=== PATIENT | female | born 1970 | race Caucasian/White ===

== ENCOUNTER → 2020-04-15 | Outpatient (CLI) | payer MEDICARE, MEDICAID, SELFPAY | END | disposition home or self-care (01) | PROVIDERS: PCP Family Medicine; Visit Provider Family Medicine | DX: Z03.818 Encounter for observation for suspected exposure to other biological agents ruled out (principal) | CPT/HCPCS: 87635; U0003 ==

== ENCOUNTER → 2020-04-29 | Outpatient (CLI) | payer MEDICARE, MEDICAID, SELFPAY ==
[2016-12-18 11:56] VITALS: BMI 42.4
== END | disposition home or self-care (01) ==
LOC: LABSPEC 04-30 06:29
PROVIDERS: Referring Provider Family Medicine; Visit Provider Family Medicine
DX: Z03.818 Encounter for observation for suspected exposure to other biological agents ruled out (principal)
CPT/HCPCS: 87635; U0003

== ENCOUNTER → 2020-05-10 | Outpatient (CLI) | payer MEDICARE, MEDICAID, SELFPAY | END | disposition home or self-care (01) | LOC: LABSPEC 12:45 | PROVIDERS: Visit Provider Family Medicine | DX: Z03.818 Encounter for observation for suspected exposure to other biological agents ruled out (principal) | CPT/HCPCS: 87635; U0003 ==

== ENCOUNTER → 2020-05-13 | Outpatient (CLI) | payer MEDICARE, MEDICAID, SELFPAY ==
[2016-12-18 11:56] VITALS: BMI 42.4
== END | disposition home or self-care (01) ==
LOC: LABSPEC 12:15
PROVIDERS: Referring Provider Family Medicine; Visit Provider Family Medicine
DX: Z03.818 Encounter for observation for suspected exposure to other biological agents ruled out (principal)
CPT/HCPCS: 87635; U0003

== ENCOUNTER → 2020-05-27 | Outpatient (CLI) | payer MEDICARE, MEDICAID, SELFPAY ==
[2016-12-18 11:56] VITALS: BMI 42.4
== END | disposition home or self-care (01) ==
LOC: LABSPEC 10:01
PROVIDERS: Referring Provider Family Medicine; Visit Provider Family Medicine
DX: Z03.818 Encounter for observation for suspected exposure to other biological agents ruled out (principal)
CPT/HCPCS: 87635; U0003

== ENCOUNTER → 2020-06-10 | Outpatient (CLI) | payer MEDICARE, MEDICAID, SELFPAY | END | disposition home or self-care (01) | LOC: LABSPEC 11:56 | PROVIDERS: Referring Provider Family Medicine; Visit Provider Family Medicine | DX: Z03.818 Encounter for observation for suspected exposure to other biological agents ruled out (principal) | CPT/HCPCS: 87635; U0003 ==

== ENCOUNTER → 2020-10-20 10:59 | Outpatient (CLI) | payer MEDICARE, MEDICAID, SELFPAY ==
[2016-12-18 11:56] VITALS: BMI 42.4
--- NOTE | 2020-10-20 11:05 | RAD_ITS ---
STUDY: X-RAY - LEFT KNEE REASON FOR EXAM: Continued left knee pain after a fall 1 year ago. TECHNIQUE: 4 view(s) of the knee. COMPARISON: None. FINDINGS: Normal visualized distal femur. Normal visualized proximal tibia and fibula. Normal proximal tibiofibular articulation. Normal medial femorotibial compartment. Normal lateral femorotibial compartment. Normal patellofemoral articulation. The soft tissue structures are unremarkable. RAD/Knee 4 or More Views IMPRESSION: Normal x-ray examination of the left knee. Electronically Signed: Kenroy Blanco MD at 11:28 EDT Tel , Service support ,
== END ==
PROVIDERS: PCP Family Medicine; Referring Provider Family Medicine; Visit Provider Family Medicine
DX: M25.562 Pain in left knee (principal)
CPT/HCPCS: 73564

== ENCOUNTER → 2020-11-04 15:33 | Outpatient (CLI) | payer MEDICARE, MEDICAID, SELFPAY ==
--- NOTE | 2020-11-04 15:36 | MRI_ITS ---
STUDY: MRI LEFT KNEE REASON FOR EXAM: Left knee pain, no specific injury. TECHNIQUE: Standardized fat and water weighted pulse sequences were obtained in all 3 orthogonal planes. COMPARISON: Radiographs 10/20/2020. FINDINGS: There is a small radial tear of the posterior horn of the medial meniscus (T2 coronal image 12; proton-density sagittal image 13. Normal hyaline cartilage of the medial femorotibial compartment. There is a small focus of subchondral bone edema of the medial tibial plateau (T2 coronal image 15), a stress phenomenon. Normal medial collateral ligamentous complex (MCL). Normal distal semimembranosus, gracilis and semitendinosus tendons. Normal lateral meniscus. Normal hyaline cartilage of the lateral femorotibial compartment. Normal lateral femoral condyle and tibial plateau. Normal proximal tibiofibular articulation. Normal lateral collateral (fibular) ligament. Normal popliteus tendon. Normal biceps femoris tendon. Normal anterior cruciate ligament (ACL). Normal posterior cruciate ligament (PCL). Normal congruent patellofemoral articulation. There is arthrosis of the patellofemoral compartment with partial-thickness chondral loss (T2 sagittal images 12, 13) with mild subchondral cystic change. Normal medial and lateral patellar retinaculum. Normal visualized quadriceps tendon. Normal patellar tendon. Normal Hoffa''s fat pad. There is a very small joint effusion. There is a small ganglion cyst of the distal popliteus tendon sheath (T2 sagittal images 15-17) measuring approximately 1 cm in length. There is mild edema in the anterior subcutis adipose space. The otherwise visualized osseous structures are unremarkable. MRI/Lower Ext Joint Only (Routine) IMPRESSION: Small radial tear of the medial meniscus. Small focus of subchondral bone edema of the medial tibial plateau, a stress phenomenon. Patellofemoral arthrosis. Very small joint effusion. Small ganglion cyst of the distal popliteus tendon sheath. Electronically Signed: Kenroy Blanco MD at 7:25 EDT Tel , Service support ,
== END ==
PROVIDERS: PCP Family Medicine; Referring Provider Family Medicine; Visit Provider Family Medicine
DX: M25.562 Pain in left knee (principal)
CPT/HCPCS: 73721

== ENCOUNTER 2020-12-28 11:00 | Outpatient (RCR) | payer MEDICARE, MEDICAID, SELFPAY ==
--- NOTE | 2020-12-06 13:59 | HP.PTEVAL ---
Patient's Visit Information VASIEL CUNNINGHAM is a 50 year old F referred to Physical Therapy by Dr. Ysabel Colin MD with a diagnosis of vestibular and gait training. Date of Evaluation: 12/06/20 Physical Therapist: BRUCE Oneill - Visit Plan Frequency: 2x /Week Duration: 4 Weeks Plan: 2X/ week for 4 weeks for standing heel and toe raises, static and dynamic balance, vestibular inputs with HEP and some LE strength( watch L knee where she has torn meniscus) with HEP - Subjective Pt reports that she trips and falls a lot. It does not happen constant. It is not weekly. She reports that she has fallen once in 6 months which was on December 02 when she fell backwards on a driveway and got a concussion. She reports that she gets dizzy, nausea and BAILEY for 3 weeks (concussion) ( starting on december 02 with hitting her head with the fall) and then it went away. She was on a med for dizziness and nausea. When she fell she also had whiplash and had something for muscles in her neck. Her other falls happened over the last year (5 times). She fell twice last year at work (had a broken nose and teeth pushed in and hurt her wrist). She reports that she misjudges her steps.. no dizziness. She had a brain scan with her concussion which showed no fracture or bleeding. Pt has Bipolor manic depressive and on psyicatric meds, thyroid, GERD. She reports that she is walking and has to look down to know where to place her feet or she misjudges. She has a torn menisus on the L knee with increase fluid on the knee and got a steroid shot. Steps: pt reports that she has misjudged steps at time as well. Pt has B foot defect where the third and fourth toes did not grow and are shorter which has caused her balance issues but has orthotics in her shoes to help offset that deformity. - Pain L knee Pain Intensity (Out of 10): 8 - Objective Gait: walks with normal gait pattern with decreased DF with gait and possible shorter stride length. Some gastroc tightness present.... FGA: (struggled with walk backwards with shorter stride, unsure of self and slow pace. CATSIB: 110/120. LE MMT: B hip flex 3+/4, R knee flex 4+/5 and L 4-/5, R knee ext 4+/5 and L 4-/5, B hip abd 4/5, able to do 1/2 normal ROM bridge. Able to walk on heels and toes: but pt struggles with LOB when she raises her toes. Patelar DTR: R 0/3 and L 1+/3. Sit to stand: pt is able to get up out of a chair without the use of her arms. - Balance Scores Functional Gait Assessment Score: 21 % Disability: 30.0000 CATSIB Score (Max score 120 seconds): 110 - Goals Goal 1:: I HEP Goal Time Frame: 4-6 Weeks Goal 2:: Increase FGA score by 5 points to decrease fall risk (score was 21) Goal Time Frame: 4-6 Weeks Goal 3:: Increase CATSIB score by 5 points to decrease fall risk (score was 110) Goal Time Frame: 4-6 Weeks Goal 4:: Be able to heel and toe raises without UE support 3 X 10 without LOB Goal Time Frame: 4-6 Weeks - Anticipated Interventions Thank you for the opportunity to evaluate your patient. For Medicare and Medicare HMO plans, please review the plan of care and approve it. It will need to be FAXED BACK to us at [phone] for Medicare purposes. For Medicare only, by signing this I certify the plan of care. Please let me know if there are questions or concerns regarding this plan of care. Physician Signature: Date:
[2020-12-23 15:48] VITALS: BMI 38.9
--- NOTE | 2021-06-29 12:26 | HP.PTDCSUM ---
It has been my pleasure to treat VASILE CUNNINGHAM referred by Dr. Ysabel Colin MD, with the diagnosis of vestibular and gait training for a total of 6 visit(s). Discharge Date: 12/28/20 Please see the following information for a summary of their discharge status. Subjective: Pt went to the Dr last (Hitesh at [facility]) and they said she has a meniscal tear and a fracture and she needs to be NWB. They gave her a pair of crutches and she can not walk without Putting her L foot down onto the ground. She is also having trouble using the stairs. He is with her to learn how to help her. L knee Pain Intensity (Out of 10): 6 % Improvement: 40 Objective/Function: Walking with a walker was much easier for the pt and she was able to walk without putting weight through her L LE. Attempted to go up the stairs with crutches and no rail and she could not even attempt it as she feels she would fall BW. said he would build a ramp for her to get in and out of the garage. Goal 1:: I HEP Goal 2:: Increase FGA score by 5 points to decrease fall risk (score was 21) Goal 3:: Increase CATSIB score by 5 points to decrease fall risk (score was 110) Goal 4:: Be able to heel and toe raises without UE support 3 X 10 without LOB Plan: DC PT at this time as pt is NWB Discharge Comments: DC PT at this time due to being NWB If there are questions or concerns regarding this patient's physical therapy, please feel free to call me at [phone]. Thank you for the referral of this patient. Sincerely, Mari Vang, MPT Balance/Gait/Functional tests - Balance/Special Test Scores Functional Gait Assessment Score: 21 % Disability: 30.0000 CATSIB Score (Max score 120 seconds): 110 Dizziness Score: 24
== END 2020-12-28 19:00 | disposition home or self-care (01) ==
LOC: PT 11:00
PROVIDERS: PCP Family Medicine; Referring Provider Family Medicine; Visit Provider Family Medicine
DX: F07.81 Postconcussional syndrome (principal)
CPT/HCPCS: 97110; 97161; 97530

== ENCOUNTER 2021-01-21 10:01 | Day surgery (SDC) | payer MEDICARE, MEDICAID, SELFPAY ==
[2020-12-23 15:48] VITALS: BMI 38.9
[2021-01-21] VITALS (9 sets, daily range): BP systolic 126–148; BP diastolic 54–97; PULSE 65–85; RESP 16–18; TEMP 36.3–36.6; O2SAT 84–97; BMI 39.6
[2021-01-21 10:20] LABS: Internal QC Validated? YES +Cl - CLEAR BKGD
[2021-01-21 10:24] LABS: Pregnancy, Urine Negative Negative
--- NOTE | 2021-01-21 10:28 | HP.PCM_ITS ---
History and Physical Date of Admission: 01/21/21 Date of Service: 01/14/21 MR#:[id number]: VASILE CUNNINGHAM [facility] #:[id number]:[id number] Provider:Dr. Venkata Fuller, DOAge/Sex: 50/F [facility] [place] Intake Intake Visit Reasons: LEFT KNEE Allergies lamotrigine [From Lamictal] Allergy (Verified 12/23/20 14:26) Rash codeine Adverse Reaction (Verified 12/23/20 14:26) Abd cramps/diarrhea Medications levothyroxine 75 mcg PO DAILY 12/18/16 [History Confirmed 01/14/21] olanzapine [Zyprexa] 0 mg PO DAILY 12/18/16 [History Confirmed 01/14/21] atorvastatin 20 mg tablet tablet PO 12/23/20 [History Confirmed 01/14/21] cholecalciferol (vitamin D3) 50 mcg (2,000 unit) capsule 2,000 unit PO DAILY cap 12/23/20 [History Confirmed 01/14/21] diclofenac sodium 1 % topical gel gm TOPICAL 12/23/20 [History Confirmed 01/14/21] divalproex 250 mg tablet,extended release 24 hr tablet PO 12/23/20 [History Confirmed 01/14/21] ferrous sulfate 325 mg (65 mg iron) tablet tablet PO 12/23/20 [History Confirmed 01/14/21] fluoxetine 20 mg capsule capsule PO 12/23/20 [History Confirmed 01/14/21] loperamide 2 mg capsule capsule PO 12/23/20 [History Confirmed 01/14/21] metformin 500 mg tablet See Rx Instructions PO .COMPLEX 12/23/20 [History Confirmed 01/14/21] naproxen 500 mg tablet 500 mg PO DIRECTED tab 12/23/20 [History Confirmed 01/14/21] pantoprazole 40 mg tablet,delayed release tablet PO 12/23/20 [History Confirmed 01/14/21] sitagliptin 100 mg tablet tablet PO 12/23/20 [History Confirmed 01/14/21] venlafaxine 37.5 mg tablet 37.5 mg PO DAILY tab 12/23/20 [History Confirmed 01/14/21] [facility] Medical History (Updated 01/14/21 @ 12:[address] Venkata Fuller, ) DM type 2 (diabetes mellitus, type 2) GERD (gastroesophageal reflux disease) Hypercholesteremia Hypothyroidism Manic depression Surgical History (Updated 12/23/20 @ 14:38 by Alicia Velez) H/O tooth extraction History of delivery Family History (Updated 12/23/20 @ 14:40 by Alicia Velez) Grandmother Diabetes Aunt Diabetes Mother Diabetes Aunt Diabetes Father CVA (cerebral vascular accident) Social History (Updated 12/23/20 @ 14:39 by Alicia Velez) household members: spouse and children housing: house number of children: 2 current occupational status: employed pets and animals: Yes pets and animals: cat(s), dog(s), fish and other Smoking Status: Never smoker alcohol intake: never substance use type: does not use what type of physical activity do you participate in: walking seatbelt use: always do you feel safe at home: Yes HPI LEFT KNEE Details: Parts of this documentation were recorded by a scribe, this documentation accurately reflects the service provided and the decisions made by me, Dr. Venkata Fuller DO 01/14/21 0900. VASILE CUNNINGHAM is a 50 year old F here today for left knee pain. To recall from record review patient has had an intra-articular injection by another provider around 11/18/2020. Patient previously seen our physician educational program assistant 12/23/2020 and was placed in a medial cylinder block hole reliner brace but has not received the knee brace at this time d/t insurance. She has been limited weight bearing. She states that when she is out of the house she uses a WC at home. She denies any prior issues with the knee prior to 2-3 months ago. SHe did have a fall last november and had some increased knee pain after that but the pain subsided. She does have painful popping and clicking of the medial knee. Contineus to have all anterior medial knee pain. Denies any hx of Fibromyalgia or any inflammatory conditions. SHe is a diabetic. Ortho Exam General General: Yes no acute distress Neurologic: Yes alert and Yes oriented x3 Psychologic: Yes reasonable and appropriate Left Knee Homans Sign: No Knee ROM: Yes ROM-Extension -20 to 0 and No ROM-Flexion 0-140 (115) Examination: Yes med jt line tenderness, No Lat jt line tenderness and Yes Mary Lou's Test KNEE: pitting edema to BL lower extrem to tibial tuberical diabetic neuropathy to foot pain without click with medial mary lou prominent varicose veins Supplemental Info 11/04/2020 MRI left knee: radial tear posterior horn medial meniscus subchondral bone edema medial tibial plateau small joint effusion 10/20/2020 x-ray left knee: Normal Patient educated that she does have a medial meniscus tear and this is the cause of most of her knee pain. Recommended a left knee arthroscopy for medial meniscus repair vs meniscectomy. Reviewed the pre-operative plans with the patient. Risks and benefits of the procedure were fully explained, including but not limited to infection, neurovascular injury, continued pain, arthritis, stiffness, need for further surgery, re-injury, DVT, PE, general risks of anesthesia, and loss of limb or life. The patient understands all the risks and does wish to proceed with written consent for left knee medial meniscus repair vs meniscectomy. She can continue to be WBAT. She may need PT after surgery but it is not likely. She will be off work for about 4-6 weeks post op. Follow up 2 weeks post op or sooner if pain, swelling, numbness or associated symptoms, or concerns develop. All questions answered. Patient in agreement of plan. Coding Level of Care Code Off vis,est,level 3 Diagnoses Tear of meniscus of left knee S83.222D Tear current or old: current Encounter type: subsequent encounter Meniscus of knee: medial Meniscus tear of knee type: peripheral Assessment and Plan Assessment and Plan (1) Tear of meniscus of left knee: Status: Acute Qualifiers: Tear current or old: current Encounter type: subsequent encounter Meniscus of knee: medial Meniscus tear of knee type: peripheral Qualified Code(s): S83.222D - Peripheral tear of medial meniscus, current injury, left knee, subsequent encounter Plan - Dr. Venkata Fuller, DO: Patient educated that she does have a medial meniscus tear and this is the cause of most of her knee pain. Recommended a left knee arthroscopy for medial meniscus repair vs meniscectomy. Reviewed the pre-operative plans with the patient. Risks and benefits of the procedure were fully explained, including but not limited to infection, neurovascular injury, continued pain, arthritis, stiffness, need for further surgery, re-injury, DVT, PE, general risks of anesthesia, and loss of limb or life. The patient understands all the risks and does wish to proceed with written consent for left knee medial meniscus repair vs meniscectomy. She can continue to be WBAT. She may need PT after surgery but it is not likely. She will be off work for about 4-6 weeks post op. Follow up 2 weeks post op or sooner if pain, swelling, numbness or associated symptoms, or concerns develop. All questions answered. Patient in agreement of plan. 01/14/21 1239<Electronically signed by Venkata Fuller DO>Date Venkata Fuller DO Cosigner Signature:Date I have re- examined the patient. There are no clinical changes since date of exam
[2021-01-21] MEDS: Lactated Ringers 1,000 ML 100 ML IV ×2 (10:43→13:00)
[2021-01-21 11:11] LABS: Bedside Glucose 202 mg/dL (70-110)
[2021-01-21] MEDS: Cefazolin 2 GM in 0.9% Normal Saline 100 ML IV (12:20)
[2021-01-21] MEDS: Bupivacaine 0.25%-Epi/Pf 1:200,000 10 ML (12:43)
[2021-01-21] MEDS: Epinephrine (1 mg/ml) 1 MG/ML VIAL (12:43)
[2021-01-21] MEDS: Bupivacaine 0.5% PF 10 ML VIAL (13:01)
[2021-01-21] MEDS: MethylPREDNISolone Acetate 40 MG/ML Vial IM (13:02)
--- NOTE | 2021-01-21 13:25 | OP.PCM_ITS ---
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 Risk benefits and alternatives of the procedure were reviewed including risk of bleeding infection nerve artery tissue damage need for further surgery continued pain and expected postoperative course. Procedure: The patient was met in the preoperative holding area. The operative extremity was identified by both patient and physician and family and marked. Patient was brought back to the operating room on a wheeled cart and transferred to the operating table in the supine position. Anesthesia was started. A well- padded tourniquet was placed on the operative extremity. A lower extremity leg mcneill was secured to the operative extremity. The contralateral extremity was well-padded and the end of the bed was flexed to 90 degrees. The patient was prepped and draped in the usual sterile fashion. A timeout was called to ensure the proper patient, procedure, and extremity were being contemplated. 0.5% Marcaine with epinephrine was injected into the planned incisional areas under the skin only. An Esmarch was used to exsanguinate the extremity and the tourniquet was inflated. An 11 blade scalpel was used to make a stab incision in the anterior lateral portal. The arthroscope was inserted into the intercondylar notch and inflow and outflow tubes were attached. Arthroscopic visualization began. The medial compartment was entered. An 18-gauge spinal needle was used to establish the placement for anterior medial portal. An 11 blade scalpel was used to make a stab incision. Blunt probe was inserted followed by a meniscal probe. The medial compartment demonstrated high-grade cartilage wear particularly of the medial femoral condyle with an area of grade 4 on a weightbearing surface chondroplasty was performed of the loose cartilage flaps there was significant grade 3 surrounding this area, there was a large radial tear in the posterior horn medial meniscus with the use of shaver and arthroscopic biting instruments partial medial vasectomy was performed to a stable rim of cartilage meniscal tissue was left the ACL was found to be intact. There was significant synovial hypertrophy and synovitis throughout the knee which required synovectomy for visualization the lateral compartment was entered no meniscal pathology however there was grade 2 cartilage wear of the lateral femoral condyle The arthroscope was switched to the medial portal to complete the procedure. The medial and lateral gutters were inspected and were free of loose bodies. The patellofemoral joint was inspected grade 4 cartilage wear of the trochlea was noted. There was good patellar tracking. The knee was thoroughly irrigated and drained. An intra-articular injection with 5 cc 0.5% Marcaine plain and 40 mg of Depo-Medrol was injected intra-articularly. The arthroscope was removed the portals were closed with 3-0 nylon arthroscopic stitches. Followed by Xeroform 4 x 4's ABDs web roll and an Leopoldo wrap. Patient had a varicose vein that was draining heavily upon the completion of the procedure a Bovie was required to cauterize .the tourniquet was let down and the drapes were removed. All counts were correct. The patient was brought back to the PACU in stable condition.
--- NOTE | 2021-01-21 13:30 | PCM.DC ---
Discharge Instructions Diet Discharge Diet: No restrictions Activity Weight Bearing Status: Weight bearing as tolerated Keep extremity elevated above heart level: Operative Extremity Dressing / Incision Call your doctor if you observe: Shortness of breath and Chest pain Change Dressing in: 2 days Additional Dressing/Incision Instructions:: Ice and elevate next 72 hours .keep dressing on clean and dry for 48 hours then may remove begin showering daily but do not submerge in tub or pool. After shower may apply Band-Aids . Encourage knee range of motion weightbearing as tolerated, use crutches until confident in knee then may discontinue. No strenuous activity. When not ambulating keep iced and elevated next 72 hours. Do not mix pain medication with recreational drugs or alcohol only take as prescribed can be addictive and abusive, call with any questions or concerns. Follow Up Care Please Follow Up With: Venkata Fuller DO When: 2 weeks Test Results: Test results from this visit will be discussed in further detail at your follow-up appointment, if applicable. Discharge Plan Admission Attending Provider: Venkata Fuller Primary Care Provider: Ysabel Colin Discharge Orders/Prescriptions Prescriptions: New oxycodone 5 mg tablet 5 mg PO Q4H PRN (Reason: pain) 7 Days Qty: 30 RF: 0 No Action atorvastatin [Lipitor] 20 mg tablet 20 mg PO DAILY RF: 0 cholecalciferol (vitamin D3) 50 mcg (2,000 unit) capsule 2,000 unit PO DAILY RF: 0 divalproex [Depakote ER] 250 mg tablet extended release 24 hr 250 tablet PO QHS RF: 0 loperamide 2 mg capsule 1 capsule PO DAILY RF: 0 ferrous sulfate 325 mg (65 mg iron) tablet 1 tablet PO DAILY RF: 0 pantoprazole 40 mg tablet,delayed release (DR/EC) 1 tablet PO DAILY RF: 0 Januvia 100 mg tablet 100 tablet PO DAILY RF: 0 fluoxetine 20 mg capsule 1 capsule PO DAILY RF: 0 venlafaxine 37.5 mg tablet 37.5 mg PO DAILY RF: 0 diclofenac sodium 1 % gel 1 gm topical PRN PRN (Reason: Pain) RF: 0 naproxen 500 mg tablet 500 mg PO DIRECTED RF: 0 olanzapine [Zyprexa] 2.5 MG tablet 2.5 mg PO DAILY RF: 0 levothyroxine 75 MCG tablet 75 mcg PO DAILY RF: 0 metformin 500 mg tablet See Rx Instructions PO .COMPLEX RF: 0 trazodone 50 mg tablet 50 mg PO DAILY RF: 0 glipizide 10 mg tablet 10 mg PO DAILY RF: 0 Referrals / Follow Up: Ysabel Colin MD [Primary Care Provider] - Disposition Disposition (needs filled in before D/C Order can be placed): Home, Self Care
[2021-01-21 13:55] LABS: Bedside Glucose 177 mg/dL (70-110)
[2021-01-21] MEDS: oxyCODONE 5 MG Tablet PO (15:24)
== END 2021-01-21 16:26 | disposition home or self-care (01) ==
LOC: SDC 10:03 → AC 10:04
PROVIDERS: Anesthesiology; PCP Family Medicine; Referring Provider Orthopaedic Surgery; Visit Provider Orthopaedic Surgery
PROC: (CPT 29870; principal; 2021-01-21 11:55)
DX: S83.242A Other tear of medial meniscus, current injury, left knee, initial encounter (principal); M94.262 Chondromalacia, left knee; M65.88 Other synovitis and tenosynovitis, other site; E11.9 Type 2 diabetes mellitus without complications; K21.9 Gastro-esophageal reflux disease without esophagitis; E78.00 Pure hypercholesterolemia, unspecified; E03.9 Hypothyroidism, unspecified; F31.9 Bipolar disorder, unspecified; G47.30 Sleep apnea, unspecified; Z91.19 Patient's noncompliance with other medical treatment and regimen; Z79.84 Long term (current) use of oral hypoglycemic drugs; Z79.899 Other long term (current) drug therapy; X58.XXXA Exposure to other specified factors, initial encounter; Y93.89 Activity, other specified; Y92.89 Other specified places as the place of occurrence of the external cause; Y99.8 Other external cause status
CPT/HCPCS: 01400; 29876; 29881; 81025; 82962; J7120; J2405

== ENCOUNTER → 2021-03-02 10:16 | Outpatient (CLI) | payer MEDICARE, MEDICAID, SELFPAY ==
[2021-02-04 09:33] VITALS: BMI 39.6
[2021-03-02 12:22] LABS: Creatinine, Serum 0.77 mg/dL (0.55-1.02); EST Glomerular Filtration Rate 84 mL/min (>60); Est Glom Filt Rate - Afr Amer 101 mL/min (>60)
== END ==
PROVIDERS: PCP Family Medicine; Referring Provider Orthopaedic Surgery; Visit Provider Orthopaedic Surgery
DX: M17.12 Unilateral primary osteoarthritis, left knee (principal)
CPT/HCPCS: 36415; 82565

== ENCOUNTER → 2021-03-30 11:02 | Outpatient (CLI) | payer MEDICARE, MEDICAID, SELFPAY ==
--- NOTE | 2021-03-30 11:04 | VDLE_ITS ---
Reason For Study: Swelling RIGHT LEFT CFV is compressible, spontaneous, phasic, GSV is normal. competent and demonstrates normal CFV is compressible, spontaneous, phasic, augmentation. competent, and demonstrates normal Procedure augmentation. This is a venous duplex using B-mode, color FV is compressible, spontaneous, phasic, flow and spectral Doppler. competent and demonstrates normal Exam performed in department. augmentation. A preliminary report was called and/or faxed POP V is compressible, spontaneous, phasic, to Wayt. competent and demonstrates normal augmentation. T/P Trunk is compressible. PTV is compressible. LT PerV is compressible. VL/Venous Duplex US, Unilateral Interpretation Summary There is no evidence of left lower extremity deep vein thrombosis. Left great s aphenous vein appears patent and compressible segmentally. Normal flow patterns right common femoral vein Ordering Physician: Cruz Robbins Referring Physician: Ysabel Colin Performed By: Beverley Holt RVT
== END ==
PROVIDERS: PCP Family Medicine; Referring Provider Physician Assistant; Visit Provider Physician Assistant
DX: M79.89 Other specified soft tissue disorders (principal)
CPT/HCPCS: 93971

== ENCOUNTER → 2021-06-21 | Outpatient (CLI) | payer MEDICARE, MEDICAID, SELFPAY ==
--- NOTE | 2021-06-21 12:00 | LES_PTH ---
PATIENT: VASILE CUNNINGHAM LOC: [facility] #:[id number] AGE/SX: 51/F ROOM: RE06/21/[address]: Dr. Ysabel Colin MD : 1970 BED: DIS: 06/21/2021 SPEC #: [id number] RECD: 06/21/21 14:45 STATUS: MONICA JEAN-BAPTISTE #: [id number] NEVIN: 06/21/21 12:[address]: Ysabel Colin DEPT: SURGICAL PATHOLOGY RECD BY: Xuan Ambrosio Tissues: Skin of head, NOS Procedures: Surgery Specimen Level IV HEADER OPERATION: Punch biopsy, 3mm PRE-OP DIAGNOSIS: Lesion 5mm, unresponsive to steroids TISSUE SUBMITTED: Punch biopsy right cheondoism, 3mm MICROSCOPIC DIAGNOSIS Right cheondoism skin lesion, punch biopsy: Basal cell carcinoma. SJ 06/24/21 MICROSCOPIC DESCRIPTION Slides are reviewed. GROSS DESCRIPTION Received is one container labeled with the patient name and designated right cheondoism. The specimen consists of one punch biopsy of garcia white skin that measures 0.2 cm in diameter and 0.1 cm in legth. The specimen is totally submitted in one cassette. FABIOLA:devonte 06/22/21 TC:0 CPT:91210
== END | disposition home or self-care (01) ==
LOC: LABSPEC 15:58
PROVIDERS: PCP Family Medicine; Visit Provider Family Medicine
DX: L98.9 Disorder of the skin and subcutaneous tissue, unspecified (principal)
CPT/HCPCS: 88305

== ENCOUNTER 2021-07-20 10:30 | Outpatient (RCR) | payer MEDICARE, MEDICAID, SELFPAY ==
--- NOTE | 2021-04-20 13:18 | HP.PTEVAL ---
Patient's Visit Information VASILE CUNNINGHAM is a 51 year old F referred to Physical Therapy by JEANINE Gibson with a diagnosis of L KNEE OA, S/P L KNEE MENISECTOMY, L ITB SYNDROME. Date of Evaluation: 04/20/21 Physical Therapist: Evonne Pearl, PT, Cert MDT - Visit Plan Frequency: 2-3x /Week Duration: 4-6 Weeks Plan: L LE ROM, STRETCHING AND STRENGTHENING TO HELP MEET SET GOALS. US, MH OR CP NEEDED. BALANCE AND PROPRIOCEPTIVE TRAINING. LAND AND AQUATIC THERAPY. 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 STANDING AND WALKING. WORK DOES NOT INVOLVE ANY HEAVY LIFTING, PUSHING OR PULLING. DOES LAUNDRY, GETS RESIDENTS ICE WATER AND SPRAYS DOWN EQUIPMENT. DOES SOME SWEEPING AND MOPPING. ESCORTS PATIENTS BACK AND FORTH TO DINING ROOM. PUSHES WHEEL CHAIRS. HANDS OUT SNACKS AND GETS NEW MASKS READY DAILY FOR PATIENTS. Disability: SSI DISABILITY FOR BIPOLAR, MANIC DEPRESSIVE DISORDER. Present symptoms: LEFT KNEE PAIN. Present since: SEPTEMBER 2020. Pain Scale: WORST 6/10, LEAST 2/10. Currently: 2/10. Commenced as a result of: NO APPARENT REASON. MAYBE AN OLD INJURY PER PATIENT REPORT. LAST YEAR TRIPPED AND FELL ON A RUBBER MAT AT WORK. ALSO FELL ON KNEES A COUPLE MONTHS BEFORE THAT WHILE STEPPING OVER A BABY GATE. Symptoms at onset: L KNEE PAIN. Worse: WALKING AT WORK, DOING STAIRS, SOMETIMES GETTING IN AND OUT OF CAR. SOMETIMES GETS SHOOTING PAINS WALKING. SOMETIMES STILL GETS PAIN LIKE BEFORE SURGERY IF SHE MOVES WRONG. INITIATING GAIT AFTER SITTING BECAUSE IT GETS STIFF AND HAS TO LIMP A BIT UNTIL SHE GETS GOING. Better: ICE, CELEBREX, UNLOADING. Disturbed sleep: L KNEE THOBS WHEN TRYING TO GO TO SLEEP AT NIGHT. Previous history/Previous treatment: JANUARY 20 2021 MENISCUS SURGERY (BY DR. BASURTO - Report of Operation. Date of Procedure: 01/21/21. Description of Surgical Findings:: Preop diagnosis: Left knee medial meniscus tear. Postoperative diagnosis: Grade IV chondromalacia medial femoral condyle grade IV chondromalacia trochlea radial tear posterior horn medial meniscus synovitis. Procedure: Left knee arthroscopic partial medial meniscectomy chondroplasty medial femoral condyle tricompartmental synovectomy). TRIED STEROID INJECTION BEFORE THE SURGERY. STATES SHE TRIED BALANCE THERAPY FOR HERE AFTER HER KNEE STARTED HURTING AND BEFORE SURGERY. STATES SHE WAS SENT TO PT BECAUSE OF THE FALLING BUT HER KNEE WAS HURTING AND HURT MORE WITH PT. TRIED A BRACE TO RELIEVE PRESSURE OFF THE TORN MENISCUS. STATES SHE QUIT WEARING THE BRACE BECAUSE OF KNEE PAIN AND CALF TIGHTNESS. Gait: GETTING PRETTY GOOD. BUT INTERMITTENT SHOOTING PAINS. STATES SHE DOESN'T FEEL LIKE SHE LIMPS ANYMORE EXCEPT AFTER SITTING. Imaging: IMAGING BEFORE KNEE SURGERY SHOWING TORN MENISCUS PER PATIENT REPORT. PMH/Recent major surgery: SEE DISABILITY ABOVE. NIDDM. APARNA FOOT DEFORMITY AND WEARS ORTHOTICS. BALANCE PROBLEMS. STATES SHE MISJUDGES STEPPING OFF CURBS AND SOMETIMES FALLS. FATTY LIVER DZ. HIGH CHOLESTROL. - Objective THIS PATIENT AMBULATES INDEP'LY INTO PT TODAY WITH A MILD LIMP ON THE LEFT LE AND NO ASSITIVE DEVICES OR LOB. INDEP TRANSFER SIT TO STAND WITHOUT UE ASSIST. APARNA KNEE GENU VALGUS. Motor deficit: RIGHT LE 5/5 EXCEPT HIP 4/5. LEFT LE: HIP 4-/5, KNEE EXT 3-/5, KNEE FLEX 3-/5, ANKLE 5/5. Sensory deficit: APARNA LE LIGHT TOUCH SENSATION INTACT AND SYMMETRICAL. ROM deficit: -15 DEG EXT TO 90 DEG FLEX IN SUPINE WITH A HEEL SLIDE AND ERP BOTH DIRECTIONS. Lumbar mvmt loss: flex - NIL. ext - MOD. R SG - MOD. L SG - MOD. Core strength: POOR. Palpation: MILD LEFT KNEE EDEMA COMPARED TO RIGHT AND MILD TENDERNESS WITH PALPATION AROUND THE PATELLA. OTHER: PATIENT REPORTS SHE ADJUSTMENTS TO HER ORTHOTICS TODAY DUE TO KNEE PAIN. - Balance/Special Test Scores Lower Extremity Functional Score: 45 - Goals Goal 1:: INDEP AND SAFE GAIT ON LEVEL SURFACES AND UP AND DOWN STEPS WITHOUT DEVIATION. Goal Time Frame: 4-6 Weeks Goal 2:: INCREASE FUNCTIONAL ROM OF RIGHT KNEE BY AT LEAST 20 DEGREES Goal Time Frame: 4-6 Weeks Goal 3:: INCREASE FUNCTION STRENGTH OF RIGHT LE TO 5/5 Goal Time Frame: 4-6 Weeks Goal 4:: PATIENT WILL BE INDEP WITH A HEP FOR CONTINUED IMPROVEMENT ONCE FORMAL PHYSICAL THERAPY CONCLUDES. Goal Time Frame: 4-6 Weeks - Anticipated Interventions Patient/Client Instruction: Educate patient on: Condition, Plan of Care, Risk Factors For the Purpose of:: To improve self management Therapeutic Exercise to Include: Strength training, Flexibilty training, Gait and locomotor training, Neuromotor development, In an aquatic setting, Dynamic Lumbar Stabilization For the Purpose of:: To decrease pain, To increase ROM, To improve muscle performance and motor function, To increase tolerance to activity/condition/position, To improve ability of physical actions for home/community/work/leisure, To improve gait and locomotor functions Cryotherapy (ice pack, ice massage): Yes Thermo therapy (hot pack): Yes Ultrasound (thermal/non thermal): Yes For the Purpose of:: To decrease pain, To decrease swelling/inflammation, To improve nutrient delivery to tissue Thank you for the opportunity to evaluate your patient. For Medicare and Medicare HMO plans, please review the plan of care and approve it. It will need to be FAXED BACK to us at [phone] for Medicare purposes. For Medicare only, by signing this I certify the plan of care. Please let me know if there are questions or concerns regarding this plan of care. Physician Signature: Date:
--- NOTE | 2021-06-02 14:05 | HP.PTREVAL ---
JEANINE Gibson, It has been my pleasure to treat VASILE CUNNINGHAM over the last 10 visits for L KNEE OA, S/P L KNEE MENISECTOMY, L ITB SYNDROME. Please see the progress note below for an update on the physical therapy plan of care! Subjective: PT ORDERED REC'D TO CONTINUE 05/26/21. PATIENT REPORTS SHE DOESN'T GET MUCH SHOOTING PAIN NOW SHE DID BEFORE SHE STARTED PT. SHE REPORTS IF FEELS BETTER WHEN SHE WALKS AROUND COMPARED TO WHEN SHE SITS. HARD TO GET TO SLEEP AT NIGHT BECAUSE OF THE PAIN. PATIENT REPORTS IT ALWAYS FEELS BETTER AFTER SHE DOES PT BOTH ON LAND AND IN THE WATER AND SHE WANTS TO CONTINUE. PATIENT REPORTS WALKING IS GETTING BETTER AND EVEN THOUGH STEPS ARE STILL DIFFICULT IT IS A LITTLE BETTER. PATIENT REPORTS SHE IS STILL GETTING UP TO 7/10 PAIN IN HER KNEE AND SHE DOES NOT HAVE FOLLOW UP SCHEDULED WITH ORTHO. Objective/Function: PATIENT WAS SEEN TODAY FOR RE-ASSESSMENT OF PROGRESS TOWARD THE SET PT GOALS AND THE NEED FOR FURTHER PHYSICAL THERAPY VS READINESS FOR DISCHARGE. SHE IS MAKING PROGRESS WITH PT IN TERMS OF LLE ROM AND STRENGTH BUT STILL REPORTING HIGH PAIN LEVELS AND SIGNIFICANT DAILY DYSFUNCTION. LEFS SCORE WAS WORSE. UPON EXAM TODAY: Motor deficit: RIGHT LE 5/5 EXCEPT HIP 4/5. LEFT LE: HIP 4/5, KNEE EXT 3-/5, KNEE FLEX 3-/5, ANKLE 5/5. Sensory deficit: APARNA LE LIGHT TOUCH SENSATION INTACT AND SYMMETRICAL. ROM deficit: -13 DEG EXT TO 119 DEG FLEX IN SUPINE WITH A HEEL SLIDE AND ERP BOTH DIRECTIONS. Lumbar mvmt loss: flex - NIL. ext - MOD. R SG - MOD. L SG - MOD. Core strength: POOR. Palpation: MILD LEFT KNEE EDEMA COMPARED TO RIGHT AND MILD TENDERNESS WITH PALPATION AROUND THE PATELLA. Plan Plan: CONT PT 2X'S A WK X 10 VISITS FOR L LE ROM, STRETCHING AND STRENGTHENING TO HELP MEET SET GOALS. US, MH OR CP NEEDED. BALANCE AND PROPRIOCEPTIVE TRAINING. LAND AND AQUATIC THERAPY. Balance/Gait/Functional tests - Balance/Special Test Scores Lower Extremity Functional Score: 34 Goals Goal 1:: INDEP AND SAFE GAIT ON LEVEL SURFACES AND UP AND DOWN STEPS WITHOUT DEVIATION. Goal Time Frame: 4-6 Weeks Goal Progress: Progressing Goal 2:: INCREASE FUNCTIONAL ROM OF RIGHT KNEE BY AT LEAST 20 DEGREES Goal Time Frame: 4-6 Weeks Goal Progress: Goal Met Goal 3:: INCREASE FUNCTION STRENGTH OF RIGHT LE TO 5/5 Goal Time Frame: 4-6 Weeks Goal Progress: Progressing Goal 4:: PATIENT WILL BE INDEP WITH A HEP FOR CONTINUED IMPROVEMENT ONCE FORMAL PHYSICAL THERAPY CONCLUDES. Goal Time Frame: 4-6 Weeks Goal Progress: Progressing Goal 5:: INCREASE FUNCTIONAL ROM OF RIGHT KNEE BY AT LEAST 10 DEGREES Goal Time Frame: 4-6 Weeks Anticipated Interventions Patient/Client Instruction: Educate patient on: Condition, Plan of Care, Risk Factors For the Purpose of:: To improve self management Therapeutic Exercise to Include: Strength training, Flexibilty training, Gait and locomotor training, Neuromotor development, In an aquatic setting, Dynamic Lumbar Stabilization For the Purpose of:: To decrease pain, To increase ROM, To improve muscle performance and motor function, To increase tolerance to activity/condition/position, To improve ability of physical actions for home/community/work/leisure, To improve gait and locomotor functions Cryotherapy (ice pack, ice massage): Yes Thermo therapy (hot pack): Yes Ultrasound (thermal/non thermal): Yes For the Purpose of:: To decrease pain, To decrease swelling/inflammation, To improve nutrient delivery to tissue Please do not hesitate to contact me at [phone] by phone or if you have questions or concerns regarding this new plan of care! Sincerely, Evonne Pearl PT, Cert MDT
--- NOTE | 2021-07-20 10:59 | HP.PTDCSUM_ITS ---
It has been my pleasure to treat VASILE CUNNINGHAM referred by JEANINE Gibson, with the diagnosis of L KNEE OA, S/P L KNEE MENISECTOMY, L ITB SYNDROME for a total of 19 visit(s). Discharge Date: 07/20/21 Please see the following information for a summary of their discharge status. Subjective: PATIENT REPORTS HER KNEE IS NOT CONTINUING TO IMPROVE AND SHE DO ESN'T THINK MORE THERAPY WILL HELP. PATIENT REPORTS ORTHO RECOMMENDS PAIN MGMT AND GEL INJECTIONS DUE TO THE AMOUNT OF ARTHRITIS SHE HAS. WENT TO A ORTHO DOCTOR IN [place] FOR A SECOND OPINION AND HE DID NOT GIVE HER AN ORDER TO CONTINUE PT. REPORTS SHE PLANS TO FOLLOW UP WITH THIS DOCTOR IN [place] BUT SHE CAN'T REMEMBER HIS NAME OR WHICH MEDICAL FACILITY HE IS WITH. LEFT KNEE Pain Intensity (Out of 10): 5 % Improvement: 50 Objective/Function: PATIENT WAS SEEN TODAY FOR RE-ASSESSMENT OF PROGRESS TOWARD THE SET PT GOALS AND THE NEED FOR FURTHER PHYSICAL THERAPY VS READINESS FOR DISCHARGE. PATIENT IS NOT CONTINUING TO IMPROVE, HAS CHANGED DOCTORS AND DOES NOT HAVE A CURRENT PT ORDER. SHE IS APPROPRIATE FOR DISCHARGE AT THIS TIME TO FOLLOW UP WITH ORTHO RECOMMENDATIONS IF WILLING. UPON EXAM TODAY: Motor deficit: RIGHT LE 5/5 EXCEPT HIP 4/5. LEFT LE: HIP 4/5, KNEE EXT 3-/5, KNEE FLEX 3-/5, ANKLE 5/5. Sensory deficit: APANRA LE LIGHT TOUCH SENSATION INTACT AND SYMMETRICAL. ROM deficit: -12 DEG EXT TO 123 DEG FLEX IN SUPINE WITH A HEEL SLIDE AND ERP BOTH DIRECTIONS. Lumbar mvmt loss: flex - NIL. ext - MOD. R SG - MOD. L SG - MOD. PATIENT DENIES LBP WITH LUMBAR ROM TESTING ALL PLANES. Core strength: POOR. Palpation: MILD LEFT KNEE EDEMA COMPARED TO RIGHT AND MILD TENDERNESS WITH PALPATION AROUND THE PATELLA. Goal 1:: INDEP AND SAFE GAIT ON LEVEL SURFACES AND UP AND DOWN STEPS WITHOUT DEVIATION. Goal Progress: Not Progressing Goal 2:: INCREASE FUNCTIONAL ROM OF RIGHT KNEE BY AT LEAST 20 DEGREES Goal Progress: Goal Met Goal 3:: INCREASE FUNCTION STRENGTH OF RIGHT LE TO 5/5 Goal Progress: Not Progressing Goal 4:: PATIENT WILL BE INDEP WITH A HEP FOR CONTINUED IMPROVEMENT ONCE FORMAL PHYSICAL THERAPY CONCLUDES. Goal Progress: Not Progressing Goal 5:: INCREASE FUNCTIONAL ROM OF RIGHT KNEE BY AT LEAST 10 DEGREES Goal Progress: Not Progressing Plan: D/C. PATIENT AGREEABLE. If there are questions or concerns regarding this patient's physical therapy, please feel free to call me at [phone]. Thank you for the referral of this patient. Sincerely, Evonne Pearl, PT, Cert MDT Balance/Gait/Functional tests - Balance/Special Test Scores Lower Extremity Functional Score: 34
== END 2021-07-20 19:00 | disposition home or self-care (01) ==
LOC: PT 10:30
PROVIDERS: PCP Family Medicine; Referring Provider Physician Assistant; Visit Provider Physician Assistant
DX: Z47.89 Encounter for other orthopedic aftercare (principal); M17.12 Unilateral primary osteoarthritis, left knee; M76.32 Iliotibial band syndrome, left leg
CPT/HCPCS: 97110; 97113; 97162; 97164; 97530

== ENCOUNTER 2021-08-11 16:59 | Outpatient (CLI) | payer MEDICARE, SELFPAY | END 2021-08-11 23:59 | disposition short-term general hospital (02) | PROVIDERS: PCP Family Medicine; Visit Provider Family Medicine | DX: Z20.828 Contact with and (suspected) exposure to other viral communicable diseases (principal) | CPT/HCPCS: 87635; U0003; U0005 ==

== ENCOUNTER 2021-08-31 06:51 | Day surgery (SDC) | payer MEDICARE, SELFPAY ==
--- NOTE | 2021-08-30 23:29 | PCM.HP.BLA ---
History and Physical Date of Admission: 08/31/21 HISTORY OF PRESENT ILLNESS 51 year old woman presents with a recent diagnosis of basal cell carcinoma after a punch biopsy done on 06/21/21 by her PCP, Dr. Colin. Pathology report showed a basal cell carcinoma. She denies any fever. She denies trauma. She presents at this time for further evaluation and treatment. PAST MEDICAL HISTORY Arthritis Basal cell carcinoma of right restorationist region Bipolar 1 disorder Diabetes DM type 2 (diabetes mellitus, type 2) Family history of skin cancer Fatty liver Gastric reflux GERD (gastroesophageal reflux disease) High cholesterol History of edema History of irregular heartbeat History of pain when walking Hypercholesteremia Hypothyroidism Injury of head and neck Manic depression Sleep apnea Thyroid disease Wears glasses Wears partial dentures PAST SURGICAL HISTORY H/O tooth extraction History of delivery History of knee surgery ALLERGIES lamotrigine [From Lamictal] codeine MEDICATIONS levothyroxine 75 mcg PO DAILY 12/18/16 [History Confirmed 07/04/21] olanzapine [Zyprexa] 2.5 mg PO DAILY 12/18/16 [History Confirmed 07/04/21] atorvastatin 20 mg tablet 20 mg PO DAILY 12/23/20 [History Confirmed 07/04/21] cholecalciferol (vitamin D3) 50 mcg (2,000 unit) capsule 2,000 unit PO DAILY cap 12/23/20 [History Confirmed 07/04/21] diclofenac sodium 1 % topical gel 1 gm TOPICAL PRN PRN 12/23/20 [History Confirmed 06/10/21] divalproex 250 mg tablet,extended release 24 hr 250 tablet PO QHS 12/23/20 [History Confirmed 07/04/21] ferrous sulfate 325 mg (65 mg iron) tablet 1 tablet PO DAILY 12/23/20 [History Confirmed 07/04/21] loperamide 2 mg capsule 1 capsule PO DAILY 12/23/20 [History Confirmed 07/04/21] metformin 500 mg tablet See Rx Instructions PO .COMPLEX 12/23/20 [History Confirmed 07/04/21] pantoprazole 40 mg tablet,delayed release 1 tablet PO DAILY 12/23/20 [History Confirmed 07/04/21] sitagliptin 100 mg tablet 100 tablet PO DAILY 12/23/20 [History Confirmed 07/04/21] venlafaxine 37.5 mg tablet 37.5 mg PO DAILY tab 12/23/20 [History Confirmed 07/04/21] glipizide 10 mg PO DAILY 01/18/21 [History Confirmed 07/04/21] fluoxetine 10 mg capsule 10 mg PO DAILY cap 06/10/21 [History Confirmed 07/04/21] FAMILY HISTORY Grandmother Diabetes Aunt Diabetes Mother Diabetes Aunt Diabetes Father CVA (cerebral vascular accident) Other Arthritis Family history of skin cancer Fatty liver High cholesterol History of psychiatric care Skin cancer Suicide attempt Thyroid disorder SOCIAL HISTORY Smoking Status: Never smoker alcohol intake: never substance use type: does not use REVIEW OF SYSTEMS General - Denies fever, fatigue, and weight loss. Eyes - Denies cataracts and glaucoma. ENT - Denies nasal congestion and sore throat. Endocrine - Has excessive thirst and urination. Has thyroid disease. Skin - Has suspicious lesion on his right restorationist by anterior temporal hairline. Has family history of skin cancer. Musculoskeletal - Has joint pain and joint stiffness. Denies weakness of muscles and joints, back pain, and arthritis. Neuro - Denies headaches. Cardiovascular - Denies chest pain, fatigue, and shortness of breath with exertion. Psych - Denies anxiety. Has depression. Respiratory - Denies chronic cough and shortness of breath. Has some sleep apnea. Gastrointestinal - Denies nausea, vomiting and constipation. Has frequent diarrhea. Hematologic - Denies abnormal bruising and bleeding. Has anemia. Genitourinary - Denies hematuria. Has urinary frequency. Has dribbling. PHYSICAL EXAMINATION General - Alert and Oriented. HEENT - PERRL. EOMI. Throat is clear. On the right restorationist by the anterior temporal hairline is a lesion that has become more raised in configuration, has developed irregular borders. Recent punch biopsy on 06/21/21 showed basal cell carcinoma. It measures 1.5 x 1.2 cm. Some overlying scab probably from the recent punch biopsy. It should resolve. Neck - Supple and nontender. No cervical adenopathy. No suspicious lesions noted. Lungs - Clear to auscultation. Heart - Regular rate and rhythm. Abdomen - Soft and nondistended. No suspicious lesions noted. Extremities - FROM. No axillary adenopathy. Radial pulses are palpable. No suspicious lesions noted. Neuro - CN II-XII grossly intact. Psych - Normal mood and affect. ASSESSMENT 1. 1.5 cm basal cell carcinoma right restorationist by anterior hairline. 2. Diabetes mellitus. 3. Family history of skin cancer. PLAN Pathology reviewed from 06/21/21. It was a punch biopsy and showed a basal cell carcinoma. Recommended to the patient to have this basal cell carcinoma excised and sent to Pathology for analysis to rule out carcinoma. Will excise with a margin of 3-5 mm. Reconstruction will be with a skin graft or a skin flap. Surgery can occur on an outpatient basis under local anesthesia and IV sedation. Patient was informed of the risks and complications of the procedure including alternatives to surgery. These were discussed with the patient personally. Patient voices understanding and wishes to proceed. Some of the risks and complications were included in a form from the [employer]. Patient has diabetes mellitus. For elective surgeries, the HgbA1c must be less than 8. We called her PCP, and her latest HgbA1c was 8.9. Excising the basal cell carcinoma would occur regardless of the HgbA1c. However, the reconstruction would not be done until it was less than 8. Patient voices understanding. We discussed the current risks associated with COVID-19. While it is understood that there is a community spread of COVID-19, the risk of jasmina COVID-19 while at [facility] ([facility]) is very low; however, the risk cannot be completely mitigated because of the community spread of the disease. We discussed in detail the risk of exposure to and/or potential harm posed by the COVID-19 virus with having a surgery/procedure at this time versus the risk of delaying the surgery/procedure. It is not possible to know either the risk of delaying the surgery or procedure or chance of getting an infection with perfect accuracy, but a joint decision was made to proceed at this time with the scheduled surgery/procedure as indicated on the consent form. Patient was notified that we will need to comply with any screening or testing [facility] wishes to perform or that surgery may be delayed for any positive results. Procedure Criteria Procedure Type: Elective COVID Risk Discussion: The surgeon/proceduralist and patient have discussed in detail the risk of exposure to and/or potential harm posed by the COVID-19 virus with having a surgery/procedure at this time versus the risk of delaying the surgery/procedure. It is not possible to know either the risk of delaying the surgery or procedure or chance of getting an infection with perfect accuracy, but a joint decision was made between the patient and the surgeon/proceduralist to proceed at this time with the scheduled surgery/procedure as indicated on the consent form.
[2021-08-31] VITALS (7 sets, daily range): BP systolic 125–135; BP diastolic 61–80; PULSE 76–87; RESP 16; TEMP 36.1–36.8; O2SAT 91–97; BMI 36.6
--- NOTE | 2021-08-31 | LES_PTH ---
PATIENT: VASILE CUNNINGHAM LOC: [facility] [place] U#:[id number] AGE/SX: 51/F ROOM: RE08/31/[address]: Dr. Kenny Gonzalez MD : 1970 BED: DIS: 08/31/2021 SPEC #: [id number] RECD: 08/31/21 12:17 STATUS: MONICA JERILYN #: [id number] NEVIN: 08/31/21 00:[address]: Kenny Gonzalez DEPT: SURGICAL PATHOLOGY RECD BY: Sander Poole ENTERED: 08/31/21 12:18 SP TYPE: Lesion OTHR DR: Dr. Ysabel Colin MD Tissues: Skin of head, NOS Procedures: Surgery Specimen Level IV HEADER OPERATION: Excision basal cell carcinoma, right synagogue by anterior hairline PRE-OP DIAGNOSIS: 5 cm basal cell carcinoma, right synagogue by anterior hairline TISSUE SUBMITTED: Basal cell carcinoma, right synagogue by anterior hairline, suture at 12 o?clock MICROSCOPIC DIAGNOSIS Skin lesion of right synagogue, excisional biopsy: Basal cell carcinoma, superficial multifocal, completely excised. Changes of previous biopsy. AM:franck 09/05/2021 COMMENT Case has been reviewed in consultation with Dr. Gregorio who concurs with the above diagnosis. IDC:SJ MICROSCOPIC DESCRIPTION Slides are reviewed. GROSS DESCRIPTION Received is one container labeled with the patient?s name and designated basal cell carcinoma right synagogue. The specimen consists of an ovoid fragment of hair-bearing excised light garcia skin measuring 4.2 x 3.3 cm and excised to a depth of 0.3 cm. The specimen has been oriented and is differentially inked as follows: 12 o?clock - block, 3 o?clock - blue, 6 o?clock - green, 9 o?clock - red and deep mid portion - yellow. The specimen is serially sectioned and totally submitted as follows: 1 & 2 - shaved margin of entire specimen, 4-6 - remainder of the lesion serially sectioned and totally submitted. /AM:devonte 09/01/21 TC:0 CPT: 33966
[2021-08-31 07:15] LABS: Bedside Glucose 200 mg/dL (70-110)
[2021-08-31 07:23] LABS: Internal QC Validated? YES +Cl - CLEAR BKGD; Pregnancy, Urine Negative Negative
[2021-08-31] MEDS: Lactated Ringers 1,000 ML 30 ML IV (07:37)
[2021-08-31] MEDS: Lidocaine 1%/Epi 1:200 (30ml) 30 ML AMPUL (09:00)
--- NOTE | 2021-08-31 09:27 | OP.PCM_ITS ---
Problems Associated Problem List Diagnoses (1) Basal cell carcinoma of right religious region: (2) DM type 2 (diabetes mellitus, type 2): (3) Family history of skin cancer: Report of Operation Date of Procedure: 08/31/21 Pre-Operative Diagnosis: 1. 2.5 cm basal cell carcinoma right religious by anterior hairline. 2. Diabetes mellitus. 3. Family history of skin cancer. Post-Operative Diagnosis: 1. 2.5 cm ulcerated basal cell carcinoma right religious by anterior hairline. 2. Diabetes mellitus. 3. Family history of skin cancer. Surgery/Procedure Performed:: Excision 2.5 cm ulcerated basal cell carcinoma right religious by anterior hairline. Description of Surgical Findings:: 51 year old woman presents with a recent diagnosis of basal cell carcinoma after a punch biopsy done on 06/21/21 by her PCP, Dr. Colin. Pathology report showed a basal cell carcinoma. She denies any fever. She denies trauma. Patient has diabetes mellitus. Her latest HgbA1c was 8.9. For elective surgeries, the HgbA1c needs to be less than 8. So will be excising the skin cancer first to establish a diagnosis. We will instruct the patient on the Silver dressing changes daily or every other day depending on the amount of drainage. Patient was informed of the risks and complications of the procedure including alternatives to surgery. These were discussed with the patient personally. Patient voices understanding and wishes to proceed. Some of the risks and complications were included in a form from the [employer]. Size of basal cell carcinoma wound right religious by anterior hairline - 4.5 x 4 cm. Surgeon: Kenny Gonzalez automatic glove turner and former: None Type of Anesthesia: Local MAC (xylocaine with epinephrine and IV sedation.) Specimen's removed: Ulcerated basal cell carcinoma right religious by anterior hairline to Pathology. Drains: None. Estimated Blood Loss (mL): 15 ml. Description of Procedure: Patient was taken to OR in supine position and was given IV sedation. The right face was prepped and draped in the usual fashion. SCD's were placed for DVT prophylaxis. Perioperative antibiotics were given intravenously. The ulcerated lesion right religious by anterior hairline was infiltrated with xylocaine and epinephrine. After waiting 5 minutes for the anesthetic to take effect, I excised the ulcerated lesion right religious by anterior hairline as a full thickness excision down into the subcutaneous tissue. A suture was marked at 12 oclock position for pathology orientation. The lesion was then sent to Pathology to rule out carcinoma Clinically I thoug ht it would be a squamous cell carcinoma which was another reason to do a full thickness excision in order to establish a diagnosis more definitively as compared to a shave excision that comes back as a squamous cell carcinoma, but can't rule out invasion. I excised the basal cell carcinoma with a 1 cm margin in all directions, Thus it was a 4.5 x 4 cm basal cell carcinoma. Hemostasis was obtained with electrocautery. I placed a piece of Aquacel Silver into the basal cell carcinoma. I then placed 4x4 gauze over top of these. Patient tolerated the procedure well and was sent to PACU in satisfactory condition. Patient will be sent home on antibiotics and pain medication. Patient will followup in a week for a wound check and for discussion of the pathology report and for removal of some of the sutures. The remaining sutures will be removed a week later. Since we just excised the basal cell carcinoma, we will wait until there is no more swelling. The second surgery which would be skin grafting which is elective, So the next A1c will determine when we do the surgery. Grafts/Implants Used: None. Complications None. Admit VTE Documentation VTE Present on Admission: No VTE Mechan Device Prophylaxis: SCD's VTE Pharm Prophylaxis ordered?: No Addendum Addendum: Surgery Charges CPT - 53296 ICD-10 - C44.319, E11.9, Z80.8
--- NOTE | 2021-08-31 09:33 | DCINST_ITS ---
Discharge Instructions Diet Discharge Diet: Carb Control Diet Activity Discharge Activity: May Not Shower (until seen in the office for an operative dressing change.) and - (keep head elevated. no heavy lifting.) May shower in (days): 2 (after the operative dressing is removed.) May resume sexual activity in: 10-14 days Ice area for (Minutes): 5 (as needed for facial swelling.) Weight Bearing Status: Weight bearing as tolerated Lifting Restrictions: 20 lbs. Keep extremity elevated above heart level: - (elevate head.) Dressing / Incision Call your doctor if your incision/area has: Continuous Slow Oozing, Sudden Increased Bleeding, Increased Pain/ Swelling, Increased Redness, Foul Smelling Discharge and Swelling at the incision site Call your doctor if you observe: Fever of 101 or Higher, Coldness, Increased Pain, Shortness of breath, Chest pain, Calf discomfort and Uncontrolled pain Suture Line Care: - (Silver dressing changes. Will instruct family in the office.) Remove Dressing in: 2 days (will remove the operative dressing in the office.) Cleanse incision/area with: Soap & Water (at the time of the Silver dressing change.) Follow Up Care Please Follow Up With: Kenny Gonzalez MD When: sunday09/02/21. call [phone] for appt. Test Results: Test results from this visit will be discussed in further detail at your follow-up appointment, if applicable. Discharge Plan Admission Primary Reason for Your Visit: excision basal cell carcinoma right gnosticist at anterior hairline. Attending Provider: Kenny Gonzalez Primary Care Provider: Ysabel Colin Discharge Orders/Prescriptions Prescriptions: New clindamycin HCl [Cleocin HCl] 300 mg capsule 300 mg PO TID Qty: 15 RF: 0 L.acidoph,saliva-B.bif-S.therm [Acidophilus Probiotic Blend] 175 mg capsule 1 cap PO DAILY Qty: 10 RF: 0 oxycodone-acetaminophen [Percocet] 5-325 mg tablet 1 tab PO Q6H PRN (Reason: pain (scale score 7-10)) 7 Days Qty: 28 RF: 0 Continued atorvastatin [Lipitor] 20 mg tablet 20 mg PO DAILY RF: 0 cholecalciferol (vitamin D3) 50 mcg (2,000 unit) capsule 2,000 unit PO DAILY RF: 0 divalproex [Depakote ER] 250 mg tablet extended release 24 hr 250 tablet PO QHS RF: 0 loperamide 2 mg capsule 1 capsule PO PRN PRN (Reason: Diarrhea) RF: 0 ferrous sulfate 325 mg (65 mg iron) tablet 1 tablet PO DAILY RF: 0 pantoprazole 40 mg tablet,delayed release (DR/EC) 40 mg PO DAILY RF: 0 Januvia 100 mg tablet 100 tablet PO DAILY RF: 0 venlafaxine 37.5 mg tablet 37.5 mg PO DAILY RF: 0 diclofenac sodium 1 % gel 1 gm topical PRN PRN (Reason: Pain) RF: 0 fluoxetine 10 mg capsule 10 mg PO DAILY RF: 0 olanzapine [Zyprexa] 2.5 MG tablet 2.5 mg PO DAILY RF: 0 levothyroxine 75 MCG tablet 75 mcg PO DAILY RF: 0 metformin 500 mg tablet 500 mg PO 4X/DAY RF: 0 glipizide 10 mg tablet 10 mg PO DAILY RF: 0 Referrals / Follow Up: Ysabel Colin MD [Primary Care Provider] - Disposition Disposition (needs filled in before D/C Order can be placed): Home, Self Care
== END 2021-08-31 23:59 | disposition home or self-care (01) ==
LOC: SDC 06:54 → AC 06:55
PROVIDERS: Anesthesiology; PCP Family Medicine; Referring Provider Surgery; Visit Provider Surgery
PROC: (CPT 11646; principal; 2021-08-31 08:15)
DX: C44.319 Basal cell carcinoma of skin of other parts of face (principal); F31.9 Bipolar disorder, unspecified; E11.9 Type 2 diabetes mellitus without complications; Z80.8 Family history of malignant neoplasm of other organs or systems; Z79.84 Long term (current) use of oral hypoglycemic drugs
CPT/HCPCS: 11646; 81025; 82962; 88305; J7120; J2405

== ENCOUNTER → 2022-03-17 | Outpatient (CLI) | payer MEDICARE, SELFPAY | END | disposition home or self-care (01) | LOC: LABSPEC 10:40 | PROVIDERS: PCP Family Medicine; Visit Provider Nurse Practitioner Family | DX: L98.499 Non-pressure chronic ulcer of skin of other sites with unspecified severity (principal) | CPT/HCPCS: 87070; 87075; 87077; 87186; 87205 ==

== ENCOUNTER 2023-05-28 12:06 | Emergency (ER) | payer MEDICARE, SELFPAY ==
[2023-05-28 12:07] VITALS: BP 115/85; PULSE 98; RESP 16; TEMP 36.4; O2SAT 98; BMI 34.7
--- NOTE | 2023-05-28 12:15 | EKG12_ITS ---
Test Reason : CP Blood Pressure : / mmHG Vent. Rate : 096 BPM Atrial Rate : 096 BPM P-R Int : 156 ms QRS Dur : 074 ms QT Int : 352 ms P-R-T Axes : 049 -24 007 degrees QTc Int : 444 ms Normal sinus rhythm Nonspecific ST and T wave abnormality Abnormal ECG Confirmed by ADEEL MATHEW, TAAR ([id number]), desk editor NICOLETTE PEREA ([id number]) on 05/30/2023 6:48:27 AM Referred By: MK/LEANN Confirmed By:TARA DENIS MD
--- NOTE | 2023-05-28 13:20 | ED.RN ---
Pt and spouse observed ambulating out of dept. When asked if they were leaving they stated yes, declined to wait for ED room.
== END 2023-05-28 12:55 | disposition left against medical advice (07) ==
LOC: ED 13:00
PROVIDERS: PCP Family Medicine
DX: Z53.21 Procedure and treatment not carried out due to patient leaving prior to being seen by health care provider (principal)
CPT/HCPCS: 93005

== ENCOUNTER 2024-10-02 11:53 | Outpatient (RCR) | payer MEDICARE, SELFPAY | END 2024-10-27 23:59 | LOC: NS 11:53 | PROVIDERS: PCP Family Medicine; Visit Provider Family Medicine | DX: Z71.3 Dietary counseling and surveillance (principal); E11.40 Type 2 diabetes mellitus with diabetic neuropathy, unspecified | CPT/HCPCS: 97802 ==

== ENCOUNTER 2024-10-30 12:18 | Outpatient (RCR) | payer MEDICARE, MEDICAID, SELFPAY | END 2024-11-26 23:59 | LOC: NS 12:18 | PROVIDERS: PCP Family Medicine; Referring Provider Family Medicine; Visit Provider Family Medicine | DX: Z71.3 Dietary counseling and surveillance (principal); E11.40 Type 2 diabetes mellitus with diabetic neuropathy, unspecified | CPT/HCPCS: 97803 ==

== ENCOUNTER 2024-12-04 10:58 | Outpatient (RCR) | payer MEDICARE, MEDICAID, SELFPAY | END 2024-12-27 23:59 | LOC: NS 10:58 | PROVIDERS: PCP Family Medicine; Referring Provider Family Medicine; Visit Provider Family Medicine | DX: Z71.3 Dietary counseling and surveillance (principal); E11.40 Type 2 diabetes mellitus with diabetic neuropathy, unspecified ==

== ENCOUNTER 2024-12-04 11:33 | Outpatient (RCR) | payer SELFPAY | END 2024-12-27 23:59 | LOC: NS 11:33 | PROVIDERS: PCP Family Medicine | DX: Z71.3 Dietary counseling and surveillance (principal) ==